=== PATIENT | male | born 1995 | race Caucasian/White ===

== ENCOUNTER → 2017-10-25 | Outpatient (CLI) | payer OTHER | LOC: COL.RAD 09:05 | DX: S43.432A Superior glenoid labrum lesion of left shoulder, initial encounter (principal); S42.295A Other nondisplaced fracture of upper end of left humerus, initial encounter for closed fracture; M24.112 Other articular cartilage disorders, left shoulder; R60.0 Localized edema | CPT/HCPCS: A9585; Q9967 ==